=== PATIENT | female | born 1950 | race Caucasian/White ===

== ENCOUNTER 2024-05-23 16:00 | Emergency (ER) | payer MEDICARE ==
[~2024-05-23] VITALS: Ht 160 cm; Wt 90.0 kg
[2024-05-23] MEDS ORDERED: ALLO10TA PO (16:14)
[2024-05-23] MEDS: MORPHINE 4 MG/ML 1ML VIAL IV ONE (17:00)
[2024-05-23] MEDS ORDERED: PERC5TAB12 PO (17:49)
[2024-05-23 18:10] VITALS: BP 143/68; TEMP 97.8; O2SAT 100
== END 2024-05-23 18:15 | disposition home or self-care (01) ==
LOC: M ED 16:00 → EDBD 16:00 → M ED 18:15
DX: S52.121A Displaced fracture of head of right radius, initial encounter for closed fracture (principal); S52.611A Displaced fracture of right ulna styloid process, initial encounter for closed fracture; W19.XXXA Unspecified fall, initial encounter; I10 Essential (primary) hypertension; Y92.814 Boat as the place of occurrence of the external cause; Y93.89 Activity, other specified; Y99.9 Unspecified external cause status; Z79.899 Other long term (current) drug therapy